=== PATIENT | male | born 1960 | race Caucasian/White ===

== ENCOUNTER → 2019-09-19 | Outpatient (CLI) | payer BC ==
[2019-09-19] VITALS (8 sets, daily range): BP systolic 120–147; BP diastolic 70–91; PULSE 83–93
[~2019-09-19] VITALS: Ht 180.3 cm; Wt 103.8 kg
[~2019-09-19] MED LIST: AMOXICILLIN 8751 TAB PO; B-121000 MCG PO; COZAAR 50MG50 MG/TAB PO; MULTIPLE VITAMI1 CAP PO; ULTRAM 50MG TAB50 MG PO; VITAMINC1000TA PO
--- NOTE | 2019-09-19 13:17 | NUR ---
PT TAKEN TO CT AND POSITIONED ON TABLE. MONITORING EQUIPMENT PLACED. IMAGES TAKEN AND SENT.
--- NOTE | 2019-09-19 13:30 | NUR ---
O2 @2L/NC PLACED PT WENT TO 88% ON RA. SATS CAME UP TO 91-92%. SPECIMENS TAKEN. BOTH FORMALIN AND RPMI USED.
--- NOTE | 2019-09-19 13:32 | NUR ---
PROCEDURE COMPLETED. PT DRAKE TO FAD HOLDING IN WHEELCHAIR
== END ==
LOC: COL.RAD 12:01
DX: C37 Malignant neoplasm of thymus (principal)
CPT/HCPCS: 32109

== ENCOUNTER → 2020-04-12 | Outpatient (CLI) | payer BC ==
[~2020-04-12] VITALS: Ht 180.3 cm; Wt 94.5 kg
[~2020-04-12] MED LIST changes: +DEMADEX 20MG20 M1 PO; -MULTIPLE VITAMI1 CAP PO; +MULTIPLE VITAMI1 TA1 PO; +NORCO 325 MG-101 TAB PO; +SENNA-LAX8.6 MG PO
[2020-04-12 07:24] VITALS: BP 139/82; PULSE 103
[2020-04-12 08:45] VITALS: BP 151/85; PULSE 104
== END ==
LOC: COL.RAD 06:53
DX: C37 Malignant neoplasm of thymus (principal); C7A.8 Other malignant neuroendocrine tumors; I10 Essential (primary) hypertension; J90 Pleural effusion, not elsewhere classified

== ENCOUNTER → 2020-05-07 | Day surgery (SDC) | payer BC ==
[~2020-05-07] VITALS: Ht 180.3 cm; Wt 94.8 kg
[~2020-05-07] MED LIST changes: +VALIUM 5MG T5 MG/TAB PO
[2020-05-07 07:22] VITALS: BP 145/85; PULSE 101; TEMP 97.9
[2020-05-07 09:15] VITALS: BP 128/86; PULSE 99; TEMP 97.4
[2020-05-07 09:30] VITALS: BP 128/78; PULSE 99
[2020-05-07 09:45] VITALS: BP 114/78; PULSE 102
[2020-05-07 10:00] VITALS: BP 129/79; PULSE 102
--- NOTE | 2020-05-07 10:27 | NUR ---
TRANSFERRED TO [facility] VIA CART. RR EVEN AND UNLABORED. O2 AT 2L/NC. PATIENT DENIES COMPLAINT. DRESSING TO R LATERAL CHEST CDI. PATIENT'S DAUGHTER IS AT BEDSIDE. PORTABLE CXR DONE. PATIENT REQUESTING BLUEBERRY MUFFIN, APPLE JUICE AND COFFEE.
--- NOTE | 2020-05-07 10:30 | NUR ---
PATIENT TOLERATING PO WELL. DENIES COMPLANT. DRESSING TO R LATERAL CHEST CDI. FOLLOW UP APPOINTMENT MADE FOR 05/15/20 AT [address] SHAH'S OFFICE. PRESCRIPTION FOR KEFLEX GIVEN TO PATIENT'S DAUGHTER.
--- NOTE | 2020-05-07 10:33 | NUR ---
PATIENT ALERT AND ORIENTED. CEFALEXIN 500 MG AND NORCO 7.5/325 MG PO GIVEN PER DR. ORDER. PATIENT CURRENTLY DENIES COMPLAINT. DRESSING TO R LATERAL CHEST CDI.
--- NOTE | 2020-05-07 10:35 | NUR ---
PATIENT REMAINS A&O X 4. DENIES COMPLAINT. SITTING UP ON SIDE OF BED. REPORT S REY TO HAVE BM. IV D/C'D. CATH INTACT. D/C INSTRUCTIONS VERBAL AND WRITTEN GIVEN TO PATIENT AND HIS DAUGHTER IN BOTH VERBAL AND WRITTEN FORMS. 1012 PATIENT AMBULATED TO BR. THEN TO W/C FOR DISCHARGE. DISCHARGED TO POV PER W/C WITH FAMILY.
== END ==
LOC: SDCO 06:44
DX: C37 Malignant neoplasm of thymus (principal); J91.8 Pleural effusion in other conditions classified elsewhere; C79.89 Secondary malignant neoplasm of other specified sites; I20.9 Angina pectoris, unspecified; I10 Essential (primary) hypertension; Z86.718 Personal history of other venous thrombosis and embolism; Z88.1 Allergy status to other antibiotic agents; Z88.2 Allergy status to sulfonamides; Z88.8 Allergy status to other drugs, medicaments and biological substances; Z79.899 Other long term (current) drug therapy; Z92.21 Personal history of antineoplastic chemotherapy; Z92.3 Personal history of irradiation
CPT/HCPCS: A7048; C1729; J2704; J7120

== ENCOUNTER 2020-06-06 10:43 | Outpatient (CLI) | payer BC ==
[~2020-06-06] VITALS: Ht 180.3 cm; Wt 94.5 kg
[2020-06-06 11:04] VITALS: BP 142/79; PULSE 105; TEMP 98.4
[2020-06-06] MEDS ORDERED: ALBUTEROL0.83 MG/ML IH (11:08)
[2020-06-06] MEDS ORDERED: NORCO 325 MG-101 TAB PO (11:09)
[2020-06-06 12:15] VITALS: BP 125/66; PULSE 87
--- NOTE | 2020-06-06 12:15 | NUR ---
Patient returns to room 5 per cart after having thoracentesis on the left side and noted bandaid dry and intact left mid back area. Denies having increasing shortness of breath. On oxygen at 4L per nasal cannula. Requests to sit on the edge of the bed. Sipping on water. Chest x-ray done prior to coming to room and will await the results of this.
[2020-06-06 12:30] VITALS: BP 132/71; PULSE 114
--- NOTE | 2020-06-06 12:30 | NUR ---
Continues to sit on the edge of the bed and sips on water.
--- NOTE | 2020-06-06 12:39 | NUR ---
Report from radiology called and no pneumothorax noted. Dr. Weber notified and patient maybe discharged to home.
--- NOTE | 2020-06-06 12:40 | NUR ---
Dismissal instructions given and voices understanding of these. Provided office number for questions and concerns. Shirt on and is back on portable oxygen. Assisted into wheelchair.
--- NOTE | 2020-06-06 12:46 | NUR ---
Patient dismissed to home driven by daughter and taken to the front door and assisted into car with dismissal instructions in hand. Report given to daughter and reinforced instructions. All questions answered.
== END 2020-06-06 12:46 | disposition home or self-care (01) ==
LOC: SDCO 10:43
DX: J90 Pleural effusion, not elsewhere classified (principal); Z88.1 Allergy status to other antibiotic agents; Z88.8 Allergy status to other drugs, medicaments and biological substances; G47.33 Obstructive sleep apnea (adult) (pediatric); I10 Essential (primary) hypertension
CPT/HCPCS: 19804

== ENCOUNTER 2020-06-15 06:45 | Day surgery (SDC) | payer BC ==
[~2020-06-15] VITALS: Ht 180.3 cm; Wt 91.4 kg
[~2020-06-15 06:45] MED LIST changes: +ALBUTEROL0.83 MG/ML IH
[2020-06-15] MEDS ORDERED: COREG 6.256.25 MG/TA PO (07:31)
[2020-06-15 07:32] LABS: BASO % 0.2 % (0.0-2.0); EOS % 0.3 % (0-4.0); GRAN # 4.7 (1.4-6.5); HEMATOCRIT 38.5 % (42.0-52.0); HEMOGLOBIN 11.6 g/dl (13.5-18.0); LYMPH # 0.4 (1.2-3.4); LYMPH % 6.7 % (20.0-51.0); MEAN CELL VOLUME 98 fl (80.0-100.0); MEAN CORPUSCULAR HEMOGLOBIN 30 pg (27.0-31.0); MEAN CORPUSCULAR HGB CONC 30 g/dl (33.0-37.0); MEAN PLATELET VOLUME 8.6 fl (7.4-10.4); MONO # 0.7 (0.1-0.6); MONO % 11.5 % (1.7-9.3); PLATELET COUNT 268 K/mm3 (130-400); RED BLOOD COUNT 3.92 M/mm3 (4.20-5.60); REDCELL DISTRIBUTION WIDTH-CV 16.2 % (11.5-14.5)
[2020-06-15] MEDS ORDERED: ZITHROMAX 250M250 MG PO (07:32)
[2020-06-15 07:44] VITALS: BP 120/75; PULSE 89; TEMP 97.9
[2020-06-15 07:49] LABS: INR 1.2 (0.8-3.0); PROTHROMBIN TIME 13.3 SECONDS (9.7-12.8)
[2020-06-15 09:00] VITALS: BP 117/76; PULSE 88
--- NOTE | 2020-06-15 09:00 | NUR ---
Pt transferred back to [facility] via cart and this RN. No procedure completed. Discharge orders in. Pt states desire to be discharged. No other complications voiced by patient.
--- NOTE | 2020-06-15 09:22 | NUR ---
Discharge instructions given to pt. Rescheduled procedure arranged for next Thursday, , at 0830. Handed to pt are a thank you card, discharge information, and a discharge med sheet. All questions answered to his satisfaction.
--- NOTE | 2020-06-15 09:25 | NUR ---
Pt transferred out of hospital via wheelchair and this RN assist with pt on own O2 via NC at 2.5 L/min. Pt transferred to private vehicle driven by . Instructions clarified with at car. All questions answered to her satisfaction.
[2020-06-15 12:27] VITALS: BP 124/87; PULSE 88
== END 2020-06-15 09:25 | disposition home or self-care (01) ==
LOC: SDCO 06:45
PROVIDERS: Internal Medicine Pulmonary Disease
DX: J90 Pleural effusion, not elsewhere classified (principal); G47.33 Obstructive sleep apnea (adult) (pediatric); I10 Essential (primary) hypertension; Z20.828 Contact with and (suspected) exposure to other viral communicable diseases; Z85.238 Personal history of other malignant neoplasm of thymus; Z92.3 Personal history of irradiation; Z79.899 Other long term (current) drug therapy; Z99.81 Dependence on supplemental oxygen; Z88.1 Allergy status to other antibiotic agents; Z88.8 Allergy status to other drugs, medicaments and biological substances
CPT/HCPCS: J2250; J2704; J3010; J7120

== ENCOUNTER 2020-06-22 06:53 | Day surgery (SDC) | payer BC ==
[~2020-06-22] VITALS: Ht 180.3 cm; Wt 90.9 kg
[~2020-06-22 06:53] MED LIST changes: +COREG 6.256.25 MG/TA PO; +ZITHROMAX 250M250 MG PO
[2020-06-22 07:58] VITALS: BP 135/87; PULSE 92; TEMP 98.3
[2020-06-22 09:15] VITALS: BP 122/77; PULSE 100
--- NOTE | 2020-06-22 09:15 | NUR ---
Patient sitting on side of bed comfortably. Patient tolerated muffin and juice without any nausea/vomiting. Vitals stable.
[2020-06-22 09:20] VITALS: BP 117/76; PULSE 93
--- NOTE | 2020-06-22 09:20 | NUR ---
Radiology into see patient at this time for post-op chest x-ray.
--- NOTE | 2020-06-22 09:25 | NUR ---
Dr Weber on the phone at this time and reports that he has looked over patient's post-op x-ray and patient can now be discharged.
--- NOTE | 2020-06-22 09:30 | NUR ---
Dismissal instructions gone over with patient. He voices understanding and all questions answered.
--- NOTE | 2020-06-22 09:40 | NUR ---
Patient discharged to private vehicle at patient enterance via wheelchair without any complications. Patient and family leave thanking staff for services.
== END 2020-06-22 09:40 | disposition home or self-care (01) ==
LOC: SDCO 06:53
DX: J90 Pleural effusion, not elsewhere classified (principal); Z88.1 Allergy status to other antibiotic agents; Z88.8 Allergy status to other drugs, medicaments and biological substances; I10 Essential (primary) hypertension; G47.33 Obstructive sleep apnea (adult) (pediatric); Z86.718 Personal history of other venous thrombosis and embolism; Z99.81 Dependence on supplemental oxygen; M19.90 Unspecified osteoarthritis, unspecified site; G89.29 Other chronic pain; Z20.828 Contact with and (suspected) exposure to other viral communicable diseases; G62.9 Polyneuropathy, unspecified
CPT/HCPCS: J7120